=== PATIENT | female | born 1955 | race Caucasian/White ===

== ENCOUNTER 2017-10-15 09:41 | Day surgery (SDC) | payer BC ==
[2017-10-12 14:30] LABS: MICROSCOPIC NOT IND
[2017-10-12 14:39] LABS: CULTURE INDICATED? NO
[2017-10-12 14:44] LABS: BASOPHILS # (AUTO) 0.07 x10^3/uL (0-0.1); BASOPHILS % (AUTO) 1 % (0-1); EOSINOPHILS # (AUTO) 0.33 x10^3/uL (0-0.4); EOSINOPHILS % (AUTO) 4 % (1-7); LYMPHOCYTES # (AUTO) 2.66 x10^3/uL (1-3.4); LYMPHOCYTES % (AUTO) 32 % (22-44); MD NO; MEAN CORPUSCULAR HEMOGLOBIN 31.2 pg (27.0-34.8); MEAN CORPUSCULAR HGB CONC 33.6 g/dL (32.4-35.8); MEAN CORPUSCULAR VOLUME 92.7 fL (80-100); MEAN PLATELET VOLUME 8.1 fL (7.4-10.4); MONOCYTES # (AUTO) 0.95 x10^3/uL (0.2-0.8); MONOCYTES % (AUTO) 12 % (2-9); NEUTROPHILS # (AUTO) 4.25 x10^3/uL (1.8-6.8); NEUTROPHILS % (AUTO) 51 % (42-75); PLATELET COUNT 365 x10^3/uL (130-400); RED BLOOD COUNT 4.95 x10^6/uL (3.82-5.3); RED CELL DISTRIBUTION WIDTH 12.1 % (9.6-15.2)
[~2017-10-15] VITALS: Ht 167.6 cm; Wt 94.7 kg
[~2017-10-15 09:41] MED LIST: ALEN70TA5 PO; ASPI81TA50 PO; ATOR20TA9 PO; BUPIVACAINE/PF 0.5% ONE; CALC1TAB72 PO; CHOL200024 PO; ESTR0.5T3 PO; FLUT15.815 NS; FOLI400T3 PO; LIDOCAINE 1%, 50ML ONE; LIDOCAINE/PF 0.5% ,50ML ONE; NITR100C6 PO; OMEG1CAP26 PO
[2017-10-15] MEDS ORDERED: FENTANYL PF 100 MCG/2ML ONE ×2 (09:44→12:17)
[2017-10-15] MEDS ORDERED: MIDAZOLAM 1 MG/ML, 2ML ONE (09:45)
[2017-10-15] MEDS ORDERED: LACTATED RINGERS 1,000 ML IV SCH (10:02)
[2017-10-15 10:28] VITALS: BP 123/80
[2017-10-15] MEDS ORDERED: CEFAZOLIN 1,000 MG ONE (11:24)
[2017-10-15] MEDS ORDERED: DEXAMETHASONE 4 MG/ML, 1ML ONE (11:24)
[2017-10-15] MEDS ORDERED: ONDANSETRON 2MG/ML, 2ML ONE (11:24)
[2017-10-15] MEDS ORDERED: PROPOFOL 10 MG/ML, 20ML ONE (11:24)
[2017-10-15] MEDS ORDERED: SCOPOLAMINE 1MG PATCH TD ONE (11:28)
[2017-10-15] MEDS ORDERED: ALENDRONATE 70 MG TABLET PO SCH (11:30)
[2017-10-15] MEDS: EPINEPHRINE 1 MG/ML, 1ML ONE ×2 (11:41→11:42)
[2017-10-15] MEDS ORDERED: ACETAMINOPHEN 650 MG/20.3 ML UDC ONE (12:17)
[2017-10-15] MEDS ORDERED: OXYcodone 5 MG/5 ML ORAL.SOL UDC ONE (12:17)
[2017-10-15] MEDS: FENTANYL PF 100 MCG/2ML IV PRN ×3 (12:20→12:30)
[2017-10-15] MEDS ORDERED: HYDROmorphone 1 MG/ML, 1ML IV PRN (13:00)
[2017-10-15] MEDS ORDERED: PROMETHAZINE 12.5 MG SUPP PR PRN (13:00)
[2017-10-15] MEDS ORDERED: METOPROLOL 1 MG/ML, 5ML IV PRN (13:00)
[2017-10-15] MEDS ORDERED: hydrALAzine 20 MG/ML, 1ML IV PRN (13:00)
[2017-10-15] MEDS ORDERED: ACETAMINOPHEN 325 MG TABLET PO PRN (13:00)
[2017-10-15] MEDS ORDERED: ALBUTEROL SULFATE 2.5 MG/3 ML NPPB PRN (13:00)
[2017-10-15] MEDS ORDERED: MEPERIDINE/PF 25MG/0.5ML IVPush PRN (13:00)
[2017-10-15] MEDS ORDERED: OXYcodone 5 MG/5 ML ORAL.SOL UDC PO PRN (13:00)
[2017-10-15] MEDS ORDERED: LORazepam 2 MG/ML, 1ML IVPush PRN (13:00)
[2017-10-15] MEDS ORDERED: ATORVASTATIN 20 MG TABLET PO SCH (21:00)
[2017-10-15] MEDS ORDERED: NITROFURANTOIN (MACROBID) 100 MG CAPSULE PO SCH (21:00)
[2017-10-16] MEDS ORDERED: ESTRADIOL 0.5 MG TABLET PO SCH (09:00)
[2017-10-16] MEDS ORDERED: ASPIRIN 81 MG TABLET EC PO SCH (09:00)
== END 2017-10-15 16:55 ==
LOC: OUT 09:41
PROVIDERS: ATTEND Orthopaedic Surgery
DX: S83.231A Complex tear of medial meniscus, current injury, right knee, initial encounter (principal); S83.281A Other tear of lateral meniscus, current injury, right knee, initial encounter; M94.261 Chondromalacia, right knee; E78.5 Hyperlipidemia, unspecified; X58.XXXA Exposure to other specified factors, initial encounter; Y93.89 Activity, other specified; Y92.89 Other specified places as the place of occurrence of the external cause; Y99.8 Other external cause status
CPT/HCPCS: 29880; 36415; 81003; 85025; 93005; J0171; J0690; J1100; J2250; J2405; J2704; J3010; J3490; J7120; J2001